=== PATIENT | female | born 1985 | race Hispanic/Latino ===

== ENCOUNTER 2017-07-17 09:13 | Inpatient (IN) | payer MEDICAID, OTHER, SELFPAY ==
[2017-07-17 10:03] VITALS: BMI 32.1
[2017-07-17] MEDS ORDERED: Misoprostol 200 MCG TAB PR PRN (10:27)
[2017-07-17] MEDS ORDERED: Ondansetron HCl/PF 4 MG/2 ML Vial IVP PRN ×2 (10:27→16:03)
[2017-07-17] MEDS ORDERED: Lidocaine 1% (PF) 30 ML VIAL SC PRN (10:27)
[2017-07-17] MEDS ORDERED: Promethazine HCl 25 MG/ML VIAL IM PRN ×2 (10:27→16:03)
[2017-07-17] MEDS ORDERED: LR / Pitocin 40 units/1000 ml 1,000 ML IV PRN (10:27)
[2017-07-17] MEDS ORDERED: Ibuprofen 800 MG TAB PO PRN (10:27)
[2017-07-17] MEDS ORDERED: FLU VACC QS2017-18 36 mo. & older 0.5 ML SYRINGE IM ONE (10:30)
[2017-07-17] MEDS ORDERED: Lactated Ringer's 1,000 ML IV SCH ×2 (10:30)
--- NOTE | 2017-07-17 10:32 | PDOC.LDHP ---
Addendum entered and electronically signed by Rubi Cody DO 07/17/17 11:34: Append note to show plan for 800mcg Cytotec available for MI use, methergine 0.2mg available in room during delivery given h/o PPH & grand multiparity. Will also assure Ruba is nearby in case of need. Original Note: Labor and Delivery H&P Chief complaint: contractions Current gestational age (weeks): 39 Due date: 07/21/17 Dating criteria: last menstrual period Grav: 8 Para: 7 Current complications: other (H/O PPH, Grand multiparity) Abnormal US findings: No Current medications: pre-rory vitamins Previous surgical history: none Social history: none - Physical Exam Vital signs reviewed and normal: yes General: NAD, breathing through contractions Heart: RRR Lungs: nonlabored breathing Abdomen: NTTP Extremeties: no edema FHT: category 1 <Rubi Cody - Last Filed: 07/17/17 10:31> HPI: 32 @ 39.3 wks by LMP c/w 19.5 wk US, with baby @96.6% by Hadlock, with pmhx of PPH with prior presents with contractions and bloody mucus since 0300 this morning. No hx of fluid loss. States contractions started at 0300 every hour and are now every ten minutes. Pt endorses PPH with prior requiring cytotec and had a hx of anemia of in first two pregnancies. Feels baby move regularly. Denies dysuria or abnormal vaginal discharge. Does not want an epidural. Dating criteria: last menstrual period (First menses @ 9 years old; Menstruation last 3-4 days every month; last pap at @ 4mo of -normal; prior hx of NILM & HPV negative), second trimester ultrasound (@19.5wks), other (c/w 19.5wk US) OB History Details: Anemia of with first and second PPH with last all pregnancies term, . Pt takes PNV and iron during this Current complications: other (H/O PPH, Grand multiparity, hx of anemia of , currently takes iron) Abnormal US findings: No - Vaginal Exam cm dilated: 6 Effacement: 75% Station: -1 - OB Labs Blood type: O RH: positive Antibody Screen: negative HIV: negative RPR: negative HEPSAg: negative 1 hour GCT: negative Urine drug screen: not done Rubella: immune Additional Labs: gonorrhea negative chlamydia negative urine cx negative - Assessment L&D Assessment: term patient in labor - Plan Plan: admit to L&D (Admit to L&D; cervix checks every 1.5-2 hours; ordered cervadil prn d/t hx of PPH. Will monitor FHT's. Clear liquid diet. Okay to ambulate.) <Daisy Cuenca - Last Filed: 07/17/17 10:47> - OB Labs GBS: negative <Karissa Campbell - Last Filed: 07/17/17 13:29> Allergies/Adverse Reactions: Allergies Allergy/AdvReac Type Severity Reaction Status Date / Time No Known Allergies Allergy Verified 07/17/17 09:58 Attending Addendum - Attending Addendum I personally evaluated the patient and discussed the management with Dr. Cody and Dr. Sanchez I agree with the History, Examination, Assessment and Plan documented above with any addition or exceptions noted below. 32 yo female at 39.3 wks by LMP/19.5 wk sono here for contractions. Patient found to be in active labor at 6 cm. Cephalic presentation. Intact membranes. Bloody show earlier this morning. No evidence of low lying placenta. EFW = 7.5 to 8 lb infant. Admit to L&D for labor. Expectant management. 1. sIUP: IOB labs reviewed. Anatomy sono reviewed. NILM. 1 hour gtt = 67. 3T negative. GBS negative. 2. Grandmultip 3. hx of PPH: Will have miso in room in addition to active management of 3rd stage. 4. Anemia of : H/H stable and improved today. FHT cat 1. Breathing through contractions. Does not want epidural. Continue to monitor. ABrayMD <Karissa Campbell - Last Filed: 07/17/17 13:29>
[2017-07-17 11:51] LABS: Hematocrit 37.2 % (36.0-47.0); Mean Platelet Volume 9.2 fL (7.4-10.4); Red Blood Cell (RBC) Count 4.22 mill/uL (4.20-5.40); White Blood Cell (WBC) Count 12.1 thou/uL (4.8-10.8)
[2017-07-17] MEDS ORDERED: Lanolin Ointment 7 GM TUBE TOP PRN (16:03)
[2017-07-17] MEDS ORDERED: Milk Of Magnesia 30 ML UDCUP PO PRN (16:03)
[2017-07-17] MEDS ORDERED: Benzocaine/Menthol 20-0.5% 60 ML CAN TOP PRN (16:03)
[2017-07-17] MEDS ORDERED: Bisacodyl 10 MG SUPP PR PRN (16:03)
[2017-07-17] MEDS ORDERED: LR / Pitocin 40 units/1000 ml 1,000 ML IV SCH (16:03)
[2017-07-17] MEDS ORDERED: HYDROcodone/Acetaminophen 5/325 mg Tablet PO PRN (16:03)
[2017-07-17] MEDS ORDERED: Preparation H Ointment 28 GM TUBE PR PRN (16:03)
[2017-07-17] MEDS: Ibuprofen 800 MG TAB PO SCH ×2 (16:44→22:02)
[2017-07-17] MEDS: Docusate (Surfak) 240 MG CAP PO SCH (22:02)
--- NOTE | 2017-07-17 23:15 | DN-2 ---
DATE OF SERVICE: 07/17/2017 DATE OF DELIVERY: 07/17/2017 DATE OF ADMISSION: 07/17/2017 DELIVERING PHYSICIAN: Daisy Cuenca M.D., Rubi Cody D.O. ATTENDING PHYSICIAN: Karissa Campbell M.D. PROCEDURE: Spontaneous vaginal delivery. ANESTHESIA: None. ESTIMATED BLOOD LOSS: 300 mL. PREOPERATIVE DIAGNOSES: 1. Term intrauterine in labor. 2. History of last hemorrhage. POSTOPERATIVE DIAGNOSES: 1. Term intrauterine , delivered. 2. History of last hemorrhage. INDICATIONS: A 32-year-old female G8, P7 presents in active labor with contractions. DELIVERY NOTE: This is a 32-year-old female, G8, P7-0-0-7 at 39.3 weeks by LMP , consistent with 19.5 week ultrasound with baby at 96.6% by Hadlock, who delivered a viable male infant at 1253 hours. Following an uneventful antepartum course, a vigorous male was delivered over an intact perineum in the OA position. Anterior shoulder and then remainder of the body delivered. No nuchal cord. The head was held down and mouth and nares were bulb suctioned. Cord clamped and cut and cord blood collected. Placenta delivered intact with a 3-vessel cord noted. The cervix and vagina were inspected and found to be in good condition, and there was a first degree laceration with hemostasis after pressure being held. Aggressive management of third stage of labor was performed with pitocin and prophylactic cytotec (800mg) d/t prior hx of hemorrhage. Fundal massage was performed and the fundus was firm. Infant went to nursery in good condition for routine care. Apgars were 8 and 9 at 1 and 5 minutes respectively. The patient tolerated delivery well and went to after routine recovery/care. [facility]
[2017-07-18] MEDS: Ibuprofen 800 MG TAB PO SCH ×2 (06:05→14:10)
[2017-07-18 07:50] VITALS: TEMP 97.6
[2017-07-18] MEDS ORDERED: Ferrous Sulfate 325 MG TAB PO SCH (08:00)
--- NOTE | 2017-07-18 08:34 | PDOC.PP ---
Post Progress Note Post Day #: 1 Subjective: feeling well. minimal cramping/pain and vaginal bleeding. no concerns this morning. would like to go home when able. PO intake tolerated: yes Flatus: yes Ambulation: yes Vital Signs (12 hours) Temp Pulse Resp BP 07/18/17 07:49 97.6 F 60 20 99/51 L 07/18/17 04:30 98.0 F 70 18 102/59 L 07/18/17 00:47 98.0 F 69 20 105/60 07/17/17 20:33 98.1 F 68 20 98/52 L Weight Weight 77.111 kg - Physical Examination General: NAD Cardiovascular: no m/r/g, RRR Respiratory: clear to auscultation bilaterally, non-labored breathing Abdominal: + bowel sounds, lochia (minimal), no distention, appropriately TTP Fundus firm & at: below umbilicus Extremities: negative homans (B) Skin: no rash Neurological: no gross focal deficits Psychiatric: A&Ox3, normal affect Result Diagrams: 07/17/17 11:10 Additional Labs: Post Labs Blood Type O POSITIVE 07/17/17 11:10 Hep Bs Antigen Non-Reactive S/CO (NonReactive) 07/17/17 11:10 (1) Term delivered Code(s): O80 - ENCOUNTER FOR FULL-TERM UNCOMPLICATED DELIVERY Status: Acute Comment: 32yo ->8 PPD#1 s/p of TAGA male on 07/17 at 1251pm. h/o PPH with prior and grandmultiparity, therefore ppx cytotec placed after delivery. no signs of PPH this . desires IUD for contraception. progressing as anticipated with normal course- anticipate discharge home this pm. <Rubi Cody - Last Filed: 07/18/17 08:32> Vital Signs (12 hours) Temp Pulse Resp BP 07/18/17 11:25 97.6 F 71 20 91/58 L 07/18/17 08:00 97.6 F 60 20 07/18/17 07:49 97.6 F 60 20 99/51 L 07/18/17 04:30 98.0 F 70 18 102/59 L Weight Weight 77.111 kg Result Diagrams: 07/17/17 11:10 Additional Labs: Post Labs Blood Type O POSITIVE 07/17/17 11:10 Hep Bs Antigen Non-Reactive S/CO (NonReactive) 07/17/17 11:10 <Karissa Campbell - Last Filed: 07/18/17 14:32> Attending Addendum - Attending Addendum I personally evaluated the patient and discussed the management with Dr. Cody and Dr. Cody I agree with the History, Examination, Assessment and Plan documented above with any addition or exceptions noted below. 32 yo female s/p at 39.3 wks on 07/17/17. PPD#1. HD#2. Patient doing well. No complaints. Pain controlled with oral meds. Lochia appropriate. Voiding well. Ambulating. Fundus firm and below umbilicus. Nontender. Breast feeding without difficulty. Request IUD for contraception. Patient is stable for discharge this afternoon. Will await bilirubin results from infant prior to d/c. ABrmaryamMD <Karissa Campbell - Last Filed: 07/18/17 14:32>
[2017-07-18] MEDS ORDERED: Prenatal Vitamin 1 TAB PO SCH (09:00)
[2017-07-18] MEDS: Docusate (Surfak) 240 MG CAP PO SCH (09:51)
[2017-07-18 11:26] VITALS: BP 91/58
--- NOTE | 2017-07-19 00:43 | DIS-2 ---
DATE OF DELIVERY: 07/17/2017 DATE OF DISCHARGE: 07/18/2017 DELIVERING AND DISCHARGING ATTENDING: Dr. Karissa Campbell. DELIVERING AND DISCHARGING RESIDENT: Dr. Rubi Cody. DISCHARGE DIAGNOSES: 1. Term average for gestational age viable male. 2. Maternal history of grand multiparity. 3. Labor and delivery complications, none. 4. Maternal medical history, none. FAMILY HISTORY: None. PROCEDURES: None. HISTORY OF PRESENT ILLNESS: Baby boy represented the 39-week 3-day product delivered of a 32-year-o ld G8, P7; now G8, P8. Blood type O positive, chlamydia negative, GBS negative, gonorrhea negative, hepatitis B antigen negative, HIV negative, RPR negative, rubella immune, but HSV positive. Family history is negative. Maternal history is negative. was overall uncomplicated. was accomplished at 12:53 hours on 07/17/[address] Rubi Cody and Dr. Daisy Cuenca with Dr. Karissa Campbell, attending. No resuscitation was required. Apgars were 8 and 9 at one and five minutes respec tively. PHYSICAL EXAMINATION: weight 8 pounds 12 ounces (3974 grams), length 19-3/4 inches. Head cir cumference 14 inches. Physical exam was overtly unremarkable. HOSPITAL COURSE: The experienced an unremarkable hospital course, established breast feeding s well, voided, and stooled normally without any complications. DISPOSITION: 1. Discharged to home with mother on 07/18/2017 with a discharge weight of 8 pounds 10 ounces (3904 grams). 2. Medications: None. 3. Diet: Breast feeding. 4. Hearing screen passed on 07/18/2017. 5. Hepatitis B vaccine given on 07/17/2017. 6. Discharge bilirubin was 5.6 on 07/18/2017, placing the patient on low intermediate risk with yu ns for repeat bilirubin at PCP's office in 2 days of discharge. 7. Follow up with Dr. Mary in [place] within 2 days of discharge.
== END 2017-07-18 16:33 | disposition home or self-care (01) | DRG 775 ==
LOC: L&D/OP 09:13 → L&D 09:33 → 3SW 15:21
PROVIDERS: ADMIT Student in an Organized Health Care Education/Training Program; ATTEND Student in an Organized Health Care Education/Training Program
PROC: 10E0XZZ Delivery of Products of Conception, External Approach (ICD-10-PCS; principal; 2017-07-17)
DX: O70.0 First degree perineal laceration during delivery (principal); Z37.0 Single live birth; Z3A.39 39 weeks gestation of pregnancy
CPT/HCPCS: 76815; 85027; 86780; 86850; 86900; 86901; 87340; J2001; J2210